=== PATIENT | female | born 1975 | race Caucasian/White ===

== ENCOUNTER 2019-11-27 16:17 | Emergency (ER) | payer OTHER, SELFPAY ==
--- NOTE | ~2019-11-27 | XR_ITS ---
EXAMINATION: XR hand RT min 3V INDICATION: Right hand pain, initial encounter TECHNIQUE: Three views of the right hand are obtained. COMPARISON: None available FINDINGS: There is an acute, traumatic, closed, oblique fracture of the fifth metacarpal shaft. Soft tissue swelling is seen adjacent to the fracture. No additional acute osseous abnormality is identifi ed. The joint spaces are maintained. IMPRESSION: 1. Acute fracture of the fifth metacarpal shaft. Reviewed, dictated and finalized at location A.
[2019-11-27 16:22] VITALS: BP 124/77; PULSE 80; RESP 18; TEMP 37.3; O2SAT 98
--- NOTE | 2019-11-27 16:37 | ED.UPPEXIN ---
HPI - Extremity Injury (Upper) General Chief Complaint: Extremity Injury, Upper <Ira Ojeda MD - Last Filed: 11/27/19 18:21> Stated Complaint: Right Hand Injury <Ira Ojeda MD - Last Filed: 11/27/19 18:21> Time Seen by Provider: 11/27/19 16:22 <Ira Ojeda MD - Last Filed: 11/27/19 18:21> Source: patient <Ira Ojeda MD - Last Filed: 11/27/19 18:21> Mode of arrival: ambulatory <Ira Ojeda MD - Last Filed: 11/27/19 18:21> Limitations: no limitations <Ira Ojeda MD - Last Filed: 11/27/19 18:21> History of Present Illness HPI narrative: Patient presents with right hand pain after getting it stuck between a bowl in the restraint. She was trying to drain an abscess in the bowels underside, when he bolted and crushed her hand. Her pain is 3 or 4 out of 10. She already took an ibuprofen 800 before coming. She can move all of her fingers. She does not have any rings on that hand. She has bruising laterally and medially. She has hypertension that is well controlled with her medications. Surgeries include , left index finger surgery She does not smoke, has occasional alcohol, does not do marijuana. <Ira Ojeda MD - Last Filed: 11/27/19 18:21> MD complaint: injury to: hand <Ira Ojeda MD - Last Filed: 11/27/19 18:21> Onset (ago): hour(s) <Ira Ojeda MD - Last Filed: 11/27/19 18:21> Other Extremity Injury: Right: hand <Ira Ojeda MD - Last Filed: 11/27/19 18:21> Related Data Allergies/Adverse Reactions: Allergies Allergy/AdvReac Type Severity Reaction Status Date / Time iodine Allergy Unknown Hives Verified 11/27/19 16:26 Sulfa (Sulfonamide Allergy Unknown Hives Verified 11/27/19 16:26 Antibiotics) Contrast Media Allergy Intermediate Swelling Uncoded 11/27/19 16:26 <Ira Ojeda MD - Last Filed: 11/27/19 18:21> Review of Systems Review of Systems: Narrative: CONSTITUTIONAL: Denies fever, chills, or sweats. ENT: Denies rhinorrhea, congestion, sore throat, or otalgia. CARDIOVASCULAR: Denies chest pain, palpitations, or edema. RESPIRATORY: Denies cough or dyspnea. GASTROINTESTINAL: Denies abdominal pain, nausea, vomiting, or diarrhea. SKIN: Denies rash or itching. MUSCULOSKELETAL: Denies back pain, joint pain, or myalgia. NEUROLOGIC: Denies headache, numbness, or weakness. <Ira Ojeda MD - Last Filed: 11/27/19 18:21> All systems reviewed & are unremarkable except as noted in HPI and below <Ira Ojeda MD - Last Filed: 11/27/19 18:21> PMFSH Past Medical History Medical History: Medical History Hypertension <Ira Ojeda MD - Last Filed: 11/27/19 18:21> Surgical History Surgical History: Surgical History (Updated 11/27/19 @ 16:40 by Ira Ojeda MD) History of <Ira Ojeda MD - Last Filed: 11/27/19 18:21> Social History Social History: Social History (Updated 11/27/19 @ 16:41 by Ira Ojeda MD) Smoking status: Never smoker Alcohol intake: current Substance use: never <Ira Ojeda MD - Last Filed: 11/27/19 18:21> Exam Narrative: Exam Narrative: GENERAL: Well-appearing, well-nourished, and in no acute distress. HEAD: Normocephalic, atraumatic. EYES: PERRLA and lazy eye ENT: Nares clear, no rhinorrhea or epistaxis. Mucous membranes moist. NECK: Supple. EXTREMITIES: Right hand with bruising on either side, with tenderness laterally. SKIN: Warm, dry, no rash. NEURO: No focal deficits. Alert and oriented x3. PSYCH: Normal mood and affect. <Ira Ojeda MD - Last Filed: 11/27/19 18:21> Course Vital Signs Vital signs: Vital Signs Temperature 99.1 F 11/27/19 16:22 Pulse Rate 80 11/27/19 16:22 Respiratory Rate 18 11/27/19 16:22 Blood Pressure 124/77 11/27/19 16:22 Pulse Oximetry 98 11/27/19 16:22 Temperature 99.1 F 11/27/19 16:22 Pulse Rate
[2019-11-27 18:28] VITALS: BP 123/77; PULSE 66; RESP 16; TEMP 37.2; O2SAT 99
== END 2019-11-27 18:29 | disposition home or self-care (01) ==
PROVIDERS: Emergency Provider Emergency Medicine; PCP Family Medicine
DX: S62.326A Displaced fracture of shaft of fifth metacarpal bone, right hand, initial encounter for closed fracture (principal); X58.XXXA Exposure to other specified factors, initial encounter; I10 Essential (primary) hypertension
CPT/HCPCS: 29125; 73130; 99284

== ENCOUNTER → 2020-02-20 13:18 | Outpatient (CLI) | payer OTHER, SELFPAY ==
--- NOTE | ~2020-02-20 | MM_ITS ---
EXAMINATION: MM screening ilana BI w luan HISTORY: Screening mammogram TECHNIQUE: Craniocaudal and mediolateral oblique 3-D tomosynthesis images were obtained and synthetic 2-D images were generated. CAD analysis was submitted and interpreted. COMPARISON: 08/04/2016 BREAST PARENCHYMAL COMPOSITION: The breasts are heterogeneously dense, which may obscure small masses . FINDINGS: There is no evidence of suspicious mass, calcification, or architectural distortion to sugg est malignancy in either breast. There has been no suspicious interval change. IMPRESSION: 1. No mammographic evidence of malignancy. 2. Recommend routine screening mammography in one year. BI-RADS Category 1: Negative Reviewed, dictated and finalized at location A. WOUND
== END ==
PROVIDERS: PCP Family Medicine; Visit Provider Nurse Practitioner Obstetrics & Gynecology
DX: Z12.31 Encounter for screening mammogram for malignant neoplasm of breast (principal)
CPT/HCPCS: 77063; 77067

== ENCOUNTER → 2022-02-24 10:20 | Outpatient (CLI) | payer OTHER, SELFPAY ==
--- NOTE | ~2022-02-24 | MM_ITS ---
EXAMINATION: MM screening ilana BI w luan HISTORY: Screening TECHNIQUE: Craniocaudal and mediolateral oblique 3-D tomosynthesis images were obtained and synthetic 2-D images were generated. CAD analysis was submitted and interpreted. COMPARISON: Comparison to multiple prior studies sequentially, with oldest reviewed study dated 08/04. BREAST PARENCHYMAL COMPOSITION: The breasts are heterogeneously dense, which may obscure small masses FINDINGS: There is no evidence of suspicious mass, calcification, or architectural distortion to sugg est malignancy in either breast. There has been no suspicious interval change. IMPRESSION: 1. No mammographic evidence of malignancy. 2. Recommend routine screening mammography in one year. BI-RADS Category 1: Negative Reviewed, dictated and finalized at location A. 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
== END ==
PROVIDERS: PCP Family Medicine; Visit Provider Nurse Practitioner Obstetrics & Gynecology
DX: Z12.31 Encounter for screening mammogram for malignant neoplasm of breast (principal)
CPT/HCPCS: 77063; 77067

== ENCOUNTER 2023-11-27 06:43 | Day surgery (SDC) | payer OTHER, SELFPAY ==
[2023-10-26 11:52] VITALS: BMI 33.6
[2023-11-16 13:50] VITALS: BMI 32.0
--- NOTE | 2023-11-27 06:44 | WPDANESEPPF ---
Anes - Initial Pre Proc Eval Procedure: Operation Date: 11/27/23 08:30 Proposed Procedures p Screening Colonoscopy - Shivam Morrissey DO Date/Time: 11/27/23 06:44 Surgeon: Shivam Morrissey DO Pre Op Diagnosis: Neoplasm Screening Patient Data Age: 48 Gender: F Height: 1.73 m Weight: 95.5 kg Allergies Allergy/AdvReac Type Severity Reaction Status Date / Time iodine Allergy Unknown Hives Verified 11/27/23 07:08 Sulfa (Sulfonamide Allergy Unknown Hives Verified 11/27/23 07:08 Antibiotics) Contrast Media Allergy Intermediate Swelling Uncoded 11/27/23 07:08 Home Medications Medication Instructions Recorded Confirmed Type amlodipine 5 mg tablet 5 mg PO DAILY 11/16/23 11/27/23 History chlorthalidone 25 mg tablet 25 mg PO DAILY 11/16/23 11/27/23 History potassium chloride 20 mEq 20 meq PO DAILY 11/16/23 11/27/23 History tablet,extended release(part/cryst) (Casey Abreu) Patient hx anesthesia problems: none Family hx anesthesia problems: none Results Review: All pre-operative results and documents have been reviewed as part of the pre-operative evaluation. [facility] Past Medical History Medical History (Updated 11/27/23 @ 08:37 by Shivam Morrissey DO) Hypertension Surgical History Surgical History (Updated 11/27/19 @ 16:40 by Ira Ojeda MD) History of Social History Social History (Updated 11/27/19 @ 16:41 by Ira Ojeda MD) Smoking status: Never smoker Alcohol intake: current Drinks per week: 1 Substance use: never Substance use type: does not use Living arrangements: with family Spiritual care concerns: No Anes - Eval Final PreProcedure Day of Procedure 11/27/23 06:44 Patient weight: obese Heart: regular rate and rhythm Lungs: clear to auscultation Airway: Mallampati scale class II Neurological: alert and oriented Last oral intake: >/= 8 hours ASA classification: II Emergent: no Anesthetic plan: proceed Anesthesia type and monitoring: general GIVS and standard monitoring Results Review: All pre-operative results and documents have been reviewed as part of the pre-operative evaluation. Informed Consent: The patient's anesthetic plan and its attendant risks and benefits were discussed with the patient/family/POA. Questions were solicited and answers provided to the satisfaction of the patient/family/POA.
[2023-11-27 07:10] VITALS: BP 138/92; PULSE 80; RESP 16; TEMP 36.7; O2SAT 98
[2023-11-27] MEDS: LACTATED RINGERS 1,000 ML 150 ML IV CONT (07:12)
--- NOTE | 2023-11-27 08:36 | PM.IMHP ---
H&P: HPI History of Present Illness Date/Time: 11/27/23 08:36 Chief Complaint: Screening for colorectal cancer Narrative: this is a 48-year-old woman who presents for colonoscopy. She has never had a colonoscopy before. She denies any hematochezia or melena. She Denies any family history of colon cancer. Review of Systems Review of Systems: All systems reviewed & are unremarkable except as noted in HPI and below Constitutional: Constitutional: Denies chills, Denies fever(s), Denies headache(s) and Denies weight loss Eyes: Eyes: Denies change in vision ENT: Denies dizziness, Denies headache(s), Denies neck mass and Denies throat swelling Cardiovascular: Cardiovascular: Denies chest pain, Denies lightheadedness and Denies dyspnea Respiratory: Respiratory: Denies cough, Denies dyspnea and Denies wheezing Gastrointestinal: Gastrointestinal: Denies abdominal pain, Denies change in bowel habits, Denies nausea and Denies vomiting Genitourinary: Genitourinary: Denies hematuria and Denies dysuria Musculoskeletal: Musculoskeletal: Reports as per HPI Integumentary/Breasts: Skin/Breast: Reports as per HPI Neurologic: Denies dizziness and Denies headache(s) Allergic/Immunologic: Allergic/Immunologic: Denies throat swelling and Denies wheezing [facility] Past Medical History Medical History (Updated 11/27/23 @ 08:37 by Shivam Morrissey DO) Hypertension Surgical History Surgical History (Updated 11/27/19 @ 16:40 by Ira Ojeda MD) History of Social History Social History (Updated 11/27/19 @ 16:41 by Ira Ojeda MD) Smoking status: Never smoker Alcohol intake: current Drinks per week: 1 Substance use: never Substance use type: does not use Living arrangements: with family Spiritual care concerns: No Meds Home Medications and Allergies Home Medications Medication Instructions Recorded Confirmed Type amlodipine 5 mg tablet 5 mg PO DAILY 11/16/23 11/27/23 History chlorthalidone 25 mg tablet 25 mg PO DAILY 11/16/23 11/27/23 History potassium chloride 20 mEq 20 meq PO DAILY 11/16/23 11/27/23 History tablet,extended release(part/cryst) (Klor-Con M) Allergies Allergy/AdvReac Type Severity Reaction Status Date / Time iodine Allergy Unknown Hives Verified 11/27/23 07:08 Sulfa (Sulfonamide Allergy Unknown Hives Verified 11/27/23 07:08 Antibiotics) Contrast Media Allergy Intermediate Swelling Uncoded 11/27/23 07:08 Vital Signs Vital Signs - 24 hr 11/27/23 07:10 Temperature 36.7 C Pulse Rate 80 Respiratory Rate 16 Blood Pressure 138/92 H Pulse Oximetry 98 Oxygen Delivery Room Air Exam Const: General: no acute distress and alert Orientation/consciousness: patient oriented x3 HENMT: Head: normocephalic and atraumatic Ears: hearing grossly normal bilaterally Face/Nose/Sinus: Normal nares present Mouth: Yes Normal oral and palatal mucosa present Eyes: Periorbital: periorbital findings normal Sclera: sclerae normal EOM: EOMs intact bilaterally Neck: Neck: normal visual inspection, no lymphadenopathy and trachea midline Chest: Chest palpation & inspection: normal inspection of the chest Resp: Effort & Inspection: normal respiratory effort Auscultation: clear to auscultation bilaterally Cardio: Jugular venous distension: no JVD Rate: regular rate Rhythm: regular rhythm Heart sounds: S1 normal heart sound present and S2 normal heart sound present Peripheral pulses: Peripheral pulses 2+ throughout GI: Inspection: normal to inspection GI Palp: Yes Soft to palpation, No Tenderness to palpation present (GI), No Guarding due to palpation present (GI) and No Rebound tenderness present Percussion: Yes normal to percussion Auscultation: normal bowel sounds : General: Yes no CVA tenderness Back/Spine/Pelvis: Back: no CVA tenderness Neuro: General: patient oriented x3, no focal motor deficits and CN's II-XI intact bilaterally Cognitio
[2023-11-27 09:03] VITALS: BP 121/91; PULSE 87; RESP 16; O2SAT 97
[2023-11-27 09:13] VITALS: BP 136/96; PULSE 76; RESP 20; O2SAT 98
[2023-11-27 09:23] VITALS: BP 129/86; PULSE 74; RESP 22; O2SAT 99
--- NOTE | 2023-11-27 10:47 | WPDANESPN ---
Anes - Prog Note Post-Op Date/Time: 11/27/23 10:47 Cardiovascular status: normal Respiratory status: normal Airway patency: baseline Mental status: baseline Post-Op hydration status: normal Vital Signs: Last Vital Signs Temp 36.7 C 11/27/23 07:10 Pulse 74 11/27/23 09:23 Resp 22 H 11/27/23 09:23 BP 129/86 11/27/23 09:23 Pulse Ox 99 11/27/23 09:23 O2 Del Method Room Air 11/27/23 09:23 Pain Score (VAS): 0 I/O: Intake & Output 11/26/23 11/27/23 11/27/23 23:59 07:59 15:59 Intake Total 450 Balance 450 Post-procedural complaints: none Patient Feedback: Patient satisfied with anesthetic care. Other Findings: Patient vital signs back to baseline. Patient denies nausea and vomiting. Patient's pain under control. Patient OK for discharge.
== END 2023-11-27 09:29 | disposition home or self-care (01) ==
PROVIDERS: PCP Family Medicine; Visit Provider Surgery
PROC: 0DJD8ZZ Inspection of Lower Intestinal Tract, Via Natural or Artificial Opening Endoscopic (ICD-10-PCS; CPT 45378; principal; 2023-11-27 08:30)
DX: Z12.11 Encounter for screening for malignant neoplasm of colon (principal); D12.5 Benign neoplasm of sigmoid colon
CPT/HCPCS: 45385

== ENCOUNTER 2023-11-27 07:00 | Outpatient (NON) | payer OTHER, SELFPAY | END 2023-11-27 07:01 | disposition home or self-care (01) | LOC: ANHLAB 11-28 09:31 | PROVIDERS: PCP Family Medicine; Visit Provider Surgery | DX: Z12.11 Encounter for screening for malignant neoplasm of colon (principal); K63.5 Polyp of colon | CPT/HCPCS: 88305 ==

== ENCOUNTER 2024-02-22 14:50 | Outpatient (CLI) | payer OTHER, SELFPAY ==
--- NOTE | ~2024-02-22 | MM_ITS ---
EXAMINATION: MM screening ilana BI w luan HISTORY: Screening mammogram, family history of breast cancer in her mother. TECHNIQUE: Craniocaudal and mediolateral oblique 3-D tomosynthesis images were obtained and synthetic 2-D images were generated. CAD analysis was submitted and interpreted. COMPARISON: 02/24/2022, 03/29/2020 BREAST PARENCHYMAL COMPOSITION:Dense: The breasts are heterogeneously dense, which may obscure small masses. FINDINGS: No suspicious mass, calcification, or architectural distortion are identified in either lionel ast to suggest malignancy. There has been no suspicious interval change. IMPRESSION: No mammographic evidence of malignancy. Recommend routine screening mammography in one year. BI-RADS Category 1: Negative Reviewed, dictated and finalized at location . [employer]
== END 2024-02-22 14:51 | disposition home or self-care (01) ==
LOC: MICIMG 14:55
PROVIDERS: PCP Family Medicine; Visit Provider Obstetrics & Gynecology
DX: Z12.31 Encounter for screening mammogram for malignant neoplasm of breast (principal)
CPT/HCPCS: 77063; 77067